=== PATIENT | male | born 1955 | race Two or more races ===

== ENCOUNTER 2016-11-02 17:38 | Emergency (ER) | payer OTHER ==
[~2016-11-02] VITALS: Ht 160 cm; Wt 81.6 kg
--- NOTE | 2016-11-02 18:00 | Emergency Room Report ---
History of Present Illness General Chief Complaint: Shoulder Injury Source: Patient Present Illness HPI Patient is a 61-year-old male who presented after increased right shoulder pain. Patient had fallen onto his right shoulder while moving a bed. The patient denied loss of consciousness. He reports having a sled pain to his right shoulder which was worse with abduction. He denies any numbness or weakness to other locations. He had a increase pain with range of motion over shoulder. Allergies: Coded Allergies: No Known Allergies (Unverified , 11/02/16) Patient History Past Medical History: see triage record Reviewed Nursing Documentation: PMH: Agreed, PSxH: Agreed Nursing Documentation-PM Past Medical History: No History, Except For Hx Diabetes: Yes Review of Systems All Other Systems: negative except mentioned in HPI Physical Exam Vital Signs Date Time Temp Pulse Resp B/P Pulse Ox O2 Delivery O2 Flow Rate FiO2 11/02/16 17:43 97.9 73 16 182/81 98 Room Air General Appearance: well appearing, no apparent distress, alert, GCS 15 Head: normocephalic, atraumatic ENT: hearing grossly normal, normal voice Neck: full range of motion, supple Respiratory: no respiratory distress, no accessory muscle use, speaking full sentences Cardiovascular #1: normal inspection, normal peripheral pulses, regular rate, rhythm, no edema Gastrointestinal: normal inspection Musculoskeletal: no calf tenderness, decreased range of mation - decreased right shoulder abduction after 90 degrees Neurologic: normal gait Psychiatric: mood/affect normal Skin: no rash Medical Decision Making Diagnostic Impression: Primary Impression: Injury of right shoulder Additional Impression: Rotator cuff injury ER Course Presented for shoulder pain. Differential diagnoses included was not limited to fracture, dislocation, a.c. separation, septic joint. X-ray imaging of the right shoulder was ordered 3 views which showed normal bony alignment without evident fracture. Patient is placed on light duty. He was advised followup with his worker's comp physicians for further evaluation he is placed in a sling. He is given prescription for ibuprofen for pain.He was advised may need MRI for further definition of injury. Other X-Ray Diagnostic Results # of Views/Limited Vs Complete: 3 View EP Interpretation: Yes Interpretation: no fractures, no dislocation, no soft tissue swelling Indication: Pain Impression: No acute disease Last Vital Signs Date Time Temp Pulse Resp B/P Pulse Ox O2 Delivery O2 Flow Rate FiO2 11/02/16 17:43 97.9 73 16 182/81 98 Room Air Status: improved Disposition: HOME, SELF-CARE Condition: Stable Scripts Ibuprofen* (MOTRIN*) 600 Mg Tablet 600 MG ORAL Q8H Y for For Pain, #30 TAB 0 Refills Prov: Bryan Johnson 11/02/16 Bryan Johnson Nov 02, 2016 18:00
[2016-11-02 18:09] VITALS: BP 161/80
[2016-11-02] MEDS ORDERED: IBUPROFEN600 MG ORAL (18:33)
[2016-11-02 19:09] VITALS: BP 158/78
--- NOTE | 2016-11-03 11:54 | Diagnostic Imaging Report ---
Indication: Pain Findings: 3 views of the right shoulder were obtained. Bones are osteopenic. There is no fracture or malalignment. Suggestion of marginal spurs involving the glenohumeral joint and acromioclavicular joints. Impression: No acute injury identified
== END 2016-11-02 19:00 | disposition home or self-care (01) ==
LOC: EMR 18:28
DX: S46.001A Unspecified injury of muscle(s) and tendon(s) of the rotator cuff of right shoulder, initial encounter (principal); W19.XXXA Unspecified fall, initial encounter; Y93.9 Activity, unspecified; Y92.9 Unspecified place or not applicable; E11.9 Type 2 diabetes mellitus without complications
CPT/HCPCS: 99283